=== PATIENT | female | born 1950 | race Caucasian/White ===

== ENCOUNTER 2020-06-02 20:01 | Inpatient (IN) | payer OTHER ==
[~2020-06-02] VITALS: Ht 165.1 cm; Wt 67.5 kg
[2020-06-02] MEDS ORDERED: SODIUM CHLORIDE 0.9% 1,000 ML IVB ONE (20:30)
[2020-06-02 21:21] LABS: Basophils # (auto) 0.1 10 ^3/uL (0-0.2); Basophils % (auto) 0.9 % (0.0-2.0); Eosinophils # (auto) 0.1 10 ^3/uL (0-0.8); Eosinophils % (auto) 0.5 % (0.0-7.0); Hematocrit 36.6 % (36.0-46.0); Hemoglobin 11.8 g/dL (12.2-16.2); Lymphocytes # (auto) 1.1 10 ^3/uL (0.4-5.4); Lymphocytes % (auto) 8.9 % (10.0-50.0); Mean Corpuscular Hemoglobin 27.5 pg (28.0-32.0); Mean Corpuscular Hgb Conc. 32.2 g/dL (32.0-36.0); Mean Corpuscular Volume 85.4 fL (80.0-100.0); Monocytes # (auto) 0.4 10 ^3/uL (0-1.3); Monocytes % (auto) 3.5 % (0.0-12.0); Neutrophils # (auto) 10.7 10 ^3/uL (1.6-8.6); Neutrophils % (auto) 86.2 % (37.0-80.0); Platelet Count (auto) 274 10^3/uL (140-450); Red Blood Cells 4.28 10^6/uL (4.0-5.20); Red Cell Distribution Width 18.4 % (11.8-14.3); White Blood Cell 12.4 10^3/uL (4.4-10.8)
[2020-06-02 21:39] LABS: Albumin 3.9 g/dL (3.4-5.0); Calcium 8.9 mg/dL (8.5-10.1); Potassium 3.6 mmol/L (3.5-5.1)
[2020-06-02 21:44] LABS: BUN/Creatinine Ratio 24.7; Bilirubin, Total 0.5 mg/dL (0.2-1.0); Total Protein 7.5 g/dL (6.4-8.2)
[2020-06-02 21:51] LABS: Partial Thromboplastin Time 28.5 sec (23.0-31.2)
[2020-06-02] MEDS ORDERED: ONDANSETRON HCL 4 MG/2 ML VIAL IV PRN (22:00)
[2020-06-02] MEDS ORDERED: FAMOTIDINE 20 MG TAB PO SCH (22:00)
[2020-06-02] MEDS ORDERED: ATORVASTATIN 20 MG TAB PO SCH (22:00)
[2020-06-02] MEDS ORDERED: MORPHINE SULF INJ 2 MG/ML SYRINGE 1ML IV PRN (22:00)
[2020-06-02] MEDS ORDERED: ACETAMINOPHEN 325 MG TAB PO PRN (22:00)
[2020-06-02] MEDS ORDERED: cloNIDine HCL 0.1 MG TAB PO PRN (22:00)
[2020-06-02] MEDS ORDERED: NITROGLYCERIN 0.4 MG SL TAB SL PRN (22:00)
[2020-06-03 02:42] VITALS: BP 103/62
[2020-06-03 05:00] VITALS: BP 123/68
[2020-06-03 07:07] LABS: Basophils # (auto) 0 10 ^3/uL (0-0.2); Basophils % (auto) 0.6 % (0.0-2.0); Eosinophils # (auto) 0.1 10 ^3/uL (0-0.8); Eosinophils % (auto) 0.9 % (0.0-7.0); Hemoglobin 10.7 g/dL (12.2-16.2); Lymphocytes # (auto) 1.6 10 ^3/uL (0.4-5.4); Lymphocytes % (auto) 19.3 % (10.0-50.0); Mean Corpuscular Hemoglobin 27.8 pg (28.0-32.0); Mean Corpuscular Hgb Conc. 32.4 g/dL (32.0-36.0); Mean Corpuscular Volume 85.9 fL (80.0-100.0); Monocytes # (auto) 0.4 10 ^3/uL (0-1.3); Monocytes % (auto) 4.1 % (0.0-12.0); Neutrophils # (auto) 6.4 10 ^3/uL (1.6-8.6); Neutrophils % (auto) 75.1 % (37.0-80.0); Platelet Count (auto) 250 10^3/uL (140-450); Red Blood Cells 3.85 10^6/uL (4.0-5.20); Red Cell Distribution Width 18.6 % (11.8-14.3); White Blood Cell 8.5 10^3/uL (4.4-10.8)
[2020-06-03 08:55] VITALS: BP 100/55
[2020-06-03] MEDS ORDERED: ASPirin 81 mg TAB PO SCH (10:00)
[2020-06-03] MEDS ORDERED: ALLO300T2 PO (10:32)
[2020-06-03] MEDS ORDERED: ATOR40TA52 PO (10:32)
[2020-06-03] MEDS ORDERED: TICA90TA PO (10:32)
[2020-06-03] MEDS ORDERED: METO-169 PO (10:32)
[2020-06-03] MEDS ORDERED: CALC667C PO (10:32)
[2020-06-03] MEDS ORDERED: TRAM50TA2 PO (10:32)
[2020-06-03] MEDS ORDERED: LISI-275 PO (10:32)
[2020-06-03] MEDS ORDERED: B-CO800T2 PO (10:32)
[2020-06-03] MEDS ORDERED: ASPI81CH59 PO (10:32)
[2020-06-03] MEDS ORDERED: FURO40TA4 PO (10:32)
[2020-06-03] MEDS ORDERED: POTA10TA51 PO (10:32)
[2020-06-03] MEDS: ENOXAPARIN SOD 30 MG/0.3 ML SYRINGE SC SCH (11:00)
[2020-06-03] MEDS ORDERED: TICAGRELOR 90 MG TAB PO ONE (12:45)
[2020-06-03 12:55] VITALS: BP 103/66
[2020-06-03] MEDS ORDERED: OPTISON 3ml Vial for INJ IV ONE (14:51)
[2020-06-03 16:54] VITALS: BP 107/58
[2020-06-03] MEDS ORDERED: LORazepam 2MG/ML-1ML VIAL IV PRN (18:45)
[2020-06-03] MEDS: TICAGRELOR 90 MG TAB PO SCH (21:37)
[2020-06-03] MEDS: ATORVASTATIN 20 MG TAB PO SCH (21:37)
[2020-06-03] MEDS: SUCRALFATE 1 GM/10 ML ORAL SUSP PO SCH (21:43)
[2020-06-03] MEDS: METOCLOPRAMIDE HCL 5MG/ml INJ 2ml VIAL IV SCH (21:43)
[2020-06-03 22:12] VITALS: BP 109/66
[2020-06-04 05:15] VITALS: BP 126/72
[2020-06-04] MEDS: METOCLOPRAMIDE HCL 5MG/ml INJ 2ml VIAL IV SCH ×3 (06:27→22:20)
[2020-06-04] MEDS: SUCRALFATE 1 GM/10 ML ORAL SUSP PO SCH ×4 (06:31→22:20)
[2020-06-04 08:53] VITALS: BP 135/78
[2020-06-04] MEDS: ASPirin 81 mg TAB PO SCH (09:02)
[2020-06-04] MEDS: PANTOPRAZOLE 40 MG/10 ML VIAL INJ IV SCH (09:02)
[2020-06-04] MEDS: ENOXAPARIN SOD 30 MG/0.3 ML SYRINGE SC SCH (09:03)
[2020-06-04] MEDS: TICAGRELOR 90 MG TAB PO SCH ×2 (10:16→22:20)
[2020-06-04 13:00] VITALS: BP 121/64
[2020-06-04 13:25] LABS: Basophils # (auto) 0 10 ^3/uL (0-0.2); Basophils % (auto) 0.7 % (0.0-2.0); Eosinophils # (auto) 0.1 10 ^3/uL (0-0.8); Eosinophils % (auto) 1.8 % (0.0-7.0); Hematocrit 32.8 % (36.0-46.0); Hemoglobin 10.9 g/dL (12.2-16.2); Lymphocytes # (auto) 1.1 10 ^3/uL (0.4-5.4); Lymphocytes % (auto) 15.9 % (10.0-50.0); Mean Corpuscular Hemoglobin 28.5 pg (28.0-32.0); Mean Corpuscular Hgb Conc. 33.2 g/dL (32.0-36.0); Monocytes # (auto) 0.3 10 ^3/uL (0-1.3); Monocytes % (auto) 4.1 % (0.0-12.0); Neutrophils # (auto) 5.6 10 ^3/uL (1.6-8.6); Neutrophils % (auto) 77.5 % (37.0-80.0); Platelet Count (auto) 258 10^3/uL (140-450); Red Blood Cells 3.82 10^6/uL (4.0-5.20); Red Cell Distribution Width 18.3 % (11.8-14.3); White Blood Cell 7.2 10^3/uL (4.4-10.8)
[2020-06-04 13:44] LABS: BUN/Creatinine Ratio 22.9; Potassium 3.6 mmol/L (3.5-5.1)
[2020-06-04 16:39] VITALS: BP 128/72
[2020-06-04 22:00] VITALS: BP 123/64
[2020-06-04] MEDS: ATORVASTATIN 20 MG TAB PO SCH (22:21)
[2020-06-05 05:00] VITALS: BP 117/82
[2020-06-05] MEDS: METOCLOPRAMIDE HCL 5MG/ml INJ 2ml VIAL IV SCH ×3 (06:31→21:11)
[2020-06-05] MEDS: SUCRALFATE 1 GM/10 ML ORAL SUSP PO SCH ×4 (06:31→21:11)
[2020-06-05 08:39] VITALS: BP 137/78
[2020-06-05] MEDS: ASPirin 81 mg TAB PO SCH (09:49)
[2020-06-05] MEDS: PANTOPRAZOLE 40 MG/10 ML VIAL INJ IV SCH (09:50)
[2020-06-05] MEDS: TICAGRELOR 90 MG TAB PO SCH ×2 (09:50→21:11)
[2020-06-05] MEDS: ENOXAPARIN SOD 30 MG/0.3 ML SYRINGE SC SCH (09:51)
[2020-06-05 12:43] VITALS: BP 147/85
[2020-06-05 16:33] VITALS: BP 120/82
[2020-06-05] MEDS ORDERED: PANT40TA2 PO (19:29)
[2020-06-05] MEDS: ATORVASTATIN 20 MG TAB PO SCH (21:11)
[2020-06-05 21:46] VITALS: BP 131/62
[2020-06-05 22:23] LABS: Urine Bacteria FEW /hpf (None Seen); Urine Blood Negative /uL (Negative); Urine Specific Gravity 1.017 (1.001-1.035); Urine WBC 3 /hpf (0 - 5)
[2020-06-06 05:00] VITALS: BP 122/81
[2020-06-06] MEDS: SUCRALFATE 1 GM/10 ML ORAL SUSP PO SCH ×2 (06:14→11:30)
[2020-06-06] MEDS: METOCLOPRAMIDE HCL 5MG/ml INJ 2ml VIAL IV SCH (06:14)
[2020-06-06 08:30] VITALS: BP 135/65
[2020-06-06 09:46] VITALS: BP 135/65
[2020-06-06] MEDS: ENOXAPARIN SOD 30 MG/0.3 ML SYRINGE SC SCH (10:00)
[2020-06-06] MEDS: PANTOPRAZOLE 40 MG/10 ML VIAL INJ IV SCH (10:13)
[2020-06-06] MEDS: ASPirin 81 mg TAB PO SCH (10:13)
[2020-06-06] MEDS: TICAGRELOR 90 MG TAB PO SCH (10:13)
[2020-06-06 12:39] VITALS: BP 138/82
== END 2020-06-06 16:45 | disposition home or self-care (01) | DRG 312 ==
LOC: ER 20:01 → EDBD 20:01 → TELE 20:02 → TELE-CENTR 06-03 02:15
PROVIDERS: ADMIT Nurse Practitioner; ATTEND Internal Medicine Nephrology
DX: R55 Syncope and collapse (principal); N17.9 Acute kidney failure, unspecified; K29.70 Gastritis, unspecified, without bleeding; N18.9 Chronic kidney disease, unspecified; E86.1 Hypovolemia; K21.9 Gastro-esophageal reflux disease without esophagitis; I95.9 Hypotension, unspecified; E86.0 Dehydration; D63.8 Anemia in other chronic diseases classified elsewhere; E78.5 Hyperlipidemia, unspecified; I12.9 Hypertensive chronic kidney disease with stage 1 through stage 4 chronic kidney disease, or unspecified chronic kidney disease; I25.10 Atherosclerotic heart disease of native coronary artery without angina pectoris; Z79.02 Long term (current) use of antithrombotics/antiplatelets; Z79.82 Long term (current) use of aspirin; Z79.899 Other long term (current) drug therapy; Z82.49 Family history of ischemic heart disease and other diseases of the circulatory system; Z83.3 Family history of diabetes mellitus; Z95.5 Presence of coronary angioplasty implant and graft
CPT/HCPCS: 36415; 70450; 70551; 71045; 80048; 80053; 81001; 83735; 84484; 85025; 85610; 85730; 87040; 87086; 93005; 93306; 93886; 95819; C9113; G0378; Q9956

== ENCOUNTER 2025-02-10 09:40 | Outpatient (CLI) | payer OTHER ==
[~2025-02-10 09:40] MED LIST: ALLO300T2 PO; ASPI81CH59 PO; ATOR40TA52 PO; B-CO800T2 PO; CALC667C PO; FURO40TA4 PO; LISI-275 PO; METO-289 PO; PANT40TA2 PO; POTA-36 PO; TICA90TA PO; TRAM50TA2 PO
[2025-02-10 10:18] LABS: Hematocrit 31.8 % (36.0-46.0); Hemoglobin 10.2 g/dL (12.2-16.2); Mean Corpuscular Hemoglobin 23.0 pg (28.0-32.0); Mean Corpuscular Volume 71.6 fL (80.0-100.0); Nucleated Red Blood Cells % 0.1 %
[2025-02-10 10:28] LABS: Urine Protein, UAD TRACE (Negative)
[2025-02-10 10:32] LABS: Alanine Aminotransferase 15 U/L (7-40); Albumin 4.3 g/dL (3.2-4.8); Alkaline Phosphatase 76 U/L (46-116); Anion Gap 14 (5-15); BUN/Creatinine Ratio 13.1 (10.0-20.0); Blood Urea Nitrogen 18 mg/dL (9-23); Calcium 9.7 mg/dL (8.7-10.4); Carbon Dioxide 24 mmol/L (20-31); Chloride 106 mmol/L (98-107); Sodium 144 mmol/L (136-145); Total Protein 6.5 g/dL (5.7-8.2); Triglycerides 147 mg/dL (< 150)
[2025-02-10 10:33] LABS: Bilirubin, Total 0.7 mg/dL (0.2-1.0); Cholesterol 146 mg/dL (< 200)
[2025-02-10 10:34] LABS: Glucose 114 mg/dL (74-106); HDL Cholesterol 37 mg/dL (40-59); Potassium 3.0 mmol/L (3.5-5.1)
[2025-02-10 11:46] LABS: Uric Acid 5.0 mg/dL (3.1-7.8)
== END 2025-02-10 17:00 | disposition home or self-care (01) ==
LOC: LAB 09:40
PROVIDERS: ATTEND Internal Medicine
DX: E78.49 Other hyperlipidemia (principal); E61.2 Magnesium deficiency; E79.0 Hyperuricemia without signs of inflammatory arthritis and tophaceous disease; E55.9 Vitamin D deficiency, unspecified; D51.9 Vitamin B12 deficiency anemia, unspecified; R94.6 Abnormal results of thyroid function studies; R82.998 Other abnormal findings in urine; R82.90 Unspecified abnormal findings in urine; R82.79 Other abnormal findings on microbiological examination of urine; R68.89 Other general symptoms and signs; R73.09 Other abnormal glucose
CPT/HCPCS: 36415; 80053; 80061; 81001; 82306; 82607; 82746; 83036; 84443; 84550; 85025; 87086

== ENCOUNTER 2025-03-24 11:09 | Outpatient (CLI) | payer OTHER ==
--- NOTE | 2025-03-24 13:58 | DVH ---
XY CHEST TWO VIEWS ROUTINE CLINICAL HISTORY: SOB COMPARISON: CHEST PORTABLE on DOS: 06/02/20 TECHNIQUE: Frontal and lateral view of the chest was obtained FINDINGS: Lines and Tubes: Left pacemaker/AICD Lungs: No focal consolidation. Pleura: No effusion. No pneumothorax. Cardiomediastinal contours: Unremarkable Bones: No acute osseous abnormality. IMPRESSION: No acute cardiopulmonary disease.
== END 2025-03-24 17:00 | disposition home or self-care (01) ==
LOC: Rad HDHVI 11:09
PROVIDERS: ATTEND Internal Medicine Cardiovascular Disease
DX: R06.02 Shortness of breath (principal)
CPT/HCPCS: 71046

== ENCOUNTER 2025-03-27 10:14 | Outpatient (CLI) | payer OTHER | END 2025-03-27 17:00 | disposition home or self-care (01) | LOC: Rad HDHVI 10:14 | PROVIDERS: ATTEND Internal Medicine Cardiovascular Disease | DX: Z01.810 Encounter for preprocedural cardiovascular examination (principal); I08.0 Rheumatic disorders of both mitral and aortic valves; R55 Syncope and collapse | CPT/HCPCS: 93306 ==

== ENCOUNTER 2025-04-01 09:25 | Outpatient (CLI) | payer OTHER ==
[~2025-04-01] VITALS: Ht 154.9 cm; Wt 73.5 kg
[2025-04-01] MEDS ORDERED: ADENOSINE 90 MG/30 ML INJ IV ONE (10:28)
[2025-04-01] MEDS ORDERED: ADENOSINE 62 MG in GIVE UN-DILUTED 0 ML IV ONE (13:30)
== END 2025-04-01 17:00 | disposition home or self-care (01) ==
LOC: Rad HDHVI 09:25
PROVIDERS: ATTEND Internal Medicine Cardiovascular Disease
DX: Z01.810 Encounter for preprocedural cardiovascular examination (principal); I49.1 Atrial premature depolarization; I12.9 Hypertensive chronic kidney disease with stage 1 through stage 4 chronic kidney disease, or unspecified chronic kidney disease; N18.9 Chronic kidney disease, unspecified; I25.10 Atherosclerotic heart disease of native coronary artery without angina pectoris; I25.5 Ischemic cardiomyopathy; E78.00 Pure hypercholesterolemia, unspecified; Z95.0 Presence of cardiac pacemaker; Z95.5 Presence of coronary angioplasty implant and graft
CPT/HCPCS: 78452; 93017; A9500; J0153

== ENCOUNTER 2025-04-23 08:27 | Outpatient (CLI) | payer OTHER ==
[2025-04-23 09:20] LABS: Mean Corpuscular Hemoglobin 22.5 pg (28.0-32.0); Mean Corpuscular Volume 72.0 fL (80.0-100.0); Nucleated Red Blood Cells % 0.0 %
[2025-04-23 09:22] LABS: Hematocrit 35.9 % (36.0-46.0); Hemoglobin 11.3 g/dL (12.2-16.2)
[2025-04-23 09:25] LABS: Urine Protein, UAD TRACE (Negative)
[2025-04-23 09:42] LABS: Microalb/Creat Ratio, Urine 40.0
[2025-04-23 09:43] LABS: Alanine Aminotransferase 19 U/L (7-40); Albumin 4.3 g/dL (3.2-4.8); Alkaline Phosphatase 82 U/L (46-116); Anion Gap 15 (5-15); BUN/Creatinine Ratio 14.1 (10.0-20.0); Calcium 9.5 mg/dL (8.7-10.4); Carbon Dioxide 25 mmol/L (20-31); Chloride 103 mmol/L (98-107); Magnesium 2.0 mg/dL (1.6-2.6); Sodium 143 mmol/L (136-145); Total Protein 7.0 g/dL (5.7-8.2)
[2025-04-23 09:44] LABS: Bilirubin, Total 0.6 mg/dL (0.2-1.0); Cholesterol 181 mg/dL (< 200); HDL Cholesterol 44 mg/dL (40-59)
[2025-04-23 09:48] LABS: Blood Urea Nitrogen 27 mg/dL (9-23); Glucose 111 mg/dL (74-106); Potassium 3.1 mmol/L (3.5-5.1); Triglycerides 151 mg/dL (< 150)
[2025-04-23 10:26] LABS: Uric Acid 6.0 mg/dL (3.1-7.8)
== END 2025-04-23 17:00 | disposition home or self-care (01) ==
LOC: LAB 08:27
PROVIDERS: ATTEND Nurse Practitioner Family
DX: I13.0 Hypertensive heart and chronic kidney disease with heart failure and stage 1 through stage 4 chronic kidney disease, or unspecified chronic kidney disease (principal); E11.22 Type 2 diabetes mellitus with diabetic chronic kidney disease; N18.30 Chronic kidney disease, stage 3 unspecified; I50.9 Heart failure, unspecified; M54.32 Sciatica, left side
CPT/HCPCS: 36415; 80053; 80061; 81001; 82043; 82306; 82570; 82607; 83036; 83735; 84443; 84550; 85025

== ENCOUNTER 2025-04-25 14:34 | Outpatient (CLI) | payer OTHER | END 2025-04-28 17:00 | disposition home or self-care (01) | LOC: LAB 14:34 | PROVIDERS: ATTEND Nurse Practitioner Family | DX: I13.0 Hypertensive heart and chronic kidney disease with heart failure and stage 1 through stage 4 chronic kidney disease, or unspecified chronic kidney disease (principal); E11.22 Type 2 diabetes mellitus with diabetic chronic kidney disease; I50.9 Heart failure, unspecified; N18.30 Chronic kidney disease, stage 3 unspecified; M54.32 Sciatica, left side | CPT/HCPCS: 82270 ==

== ENCOUNTER 2025-07-17 09:44 | Outpatient (CLI) | payer OTHER ==
[2025-07-17 10:52] LABS: Hematocrit 35.2 % (36.0-46.0); Hemoglobin 11.2 g/dL (12.2-16.2); Mean Corpuscular Hemoglobin 24.5 pg (28.0-32.0); Mean Corpuscular Volume 77.2 fL (80.0-100.0); Nucleated Red Blood Cells % 0.0 %
[2025-07-17 11:22] LABS: Alanine Aminotransferase 19 U/L (7-40); Albumin 4.3 g/dL (3.2-4.8); Alkaline Phosphatase 65 U/L (46-116); Anion Gap 12 (5-15); BUN/Creatinine Ratio 11.8 (10.0-20.0); Blood Urea Nitrogen 19 mg/dL (9-23); Calcium 9.6 mg/dL (8.7-10.4); Carbon Dioxide 28 mmol/L (20-31); Chloride 105 mmol/L (98-107); Cholesterol 159 mg/dL (< 200); Magnesium 2.0 mg/dL (1.6-2.6); Potassium 4.3 mmol/L (3.5-5.1); Sodium 145 mmol/L (136-145); Total Protein 6.9 g/dL (5.7-8.2); Urine Protein, UAD TRACE (Negative)
[2025-07-17 11:23] LABS: Bilirubin, Total 0.6 mg/dL (0.2-1.0); Glucose 106 mg/dL (74-106); HDL Cholesterol 42 mg/dL (40-59); Triglycerides 153 mg/dL (< 150)
[2025-07-17 12:07] LABS: Uric Acid 5.2 mg/dL (3.1-7.8)
== END 2025-07-17 17:00 | disposition home or self-care (01) ==
LOC: LAB 09:44
PROVIDERS: ATTEND Internal Medicine
DX: E55.9 Vitamin D deficiency, unspecified (principal); E78.49 Other hyperlipidemia; E61.2 Magnesium deficiency; E79.0 Hyperuricemia without signs of inflammatory arthritis and tophaceous disease; D51.9 Vitamin B12 deficiency anemia, unspecified; R68.89 Other general symptoms and signs; R73.09 Other abnormal glucose; R94.6 Abnormal results of thyroid function studies; R82.998 Other abnormal findings in urine; R82.90 Unspecified abnormal findings in urine; R82.79 Other abnormal findings on microbiological examination of urine
CPT/HCPCS: 36415; 80053; 80061; 81001; 82306; 82607; 82746; 83036; 83735; 84443; 84550; 85025; 87086